=== PATIENT | male | born 1975 | race Caucasian/White ===

== ENCOUNTER 2024-02-04 02:30 | Emergency (ER) | payer BC, OTHER ==
[2024-02-04] MEDS: Ketorolac 15 MG/ML SDV IVPUSH ONE (03:42)
[2024-02-04 04:48] LABS: HEMATOCRIT 41.2 % (42.0-52.0); HEMOGLOBIN 13.4 gm/dl (14.0-18.0); MEAN CORPUSCULAR VOLUME 85.1 fl (83.0-99.0); RED BLOOD CELL COUNT 4.84 M/mm3 (4.52-5.90); WHITE BLOOD CELL COUNT,WBC 9.82 K/mm3 (3.9-11.3)
[2024-02-04 04:49] LABS: BASOPHILS PERCENT AUTO 0.4 % (0.0-1.0); EOSINOPHILS PERCENT AUTO 1.1 % (0.0-6.0); IMMATURE GRAN PERCENT AUTO 0.4 % (0.0-0.4); LYMPHOCYTES PERCENT AUTO 24.2 % (24.0-44.0); MEAN CORPUSCULAR HEMOGLOBIN 27.7 pg (28.0-32.0); MEAN CORPUSCULAR HGB CONC 32.5 g/dl (32.0-36.0); MEAN PLATELET VOLUME 9.7 fl (9.4-12.4); MONOCYTES PERCENT AUTO 9.9 % (0.0-8.0); NEUTROPHILS ABSOLUTE AUTO 6.3 K/mm3 (1.8-7.7); PLATELET COUNT,PLT 299 K/mm3 (150-400)
[2024-02-04 04:50] LABS: EOSINOPHILS ABSOLUTE AUTO 0.1 K/mm3 (0.0-0.4); IMMATURE GRAN ABSOLUTE AUTO 0.04 K/mm3 (0.00-0.05); LYMPHOCYTES ABSOLUTE AUTO 2.4 K/mm3 (1.0-4.8)
[2024-02-04 04:51] LABS: ANION GAP 15.3 (5-15); BUN/CREATININE RATIO 12.2 (14-18); CREATININE 0.9 mg/dL (0.7-1.3); EST CRCL DRUG DOSING (CG) 119.22 mL/min; POTASSIUM,K 3.3 mEq/L (3.5-5.1)
[2024-02-04 04:52] LABS: ALBUMIN 3.4 g/dl (3.4-5.0); BILIRUBIN TOTAL 0.3 mg/dL (0.2-1.0); CALCIUM 8.5 mg/dL (8.5-10.1); PROTEIN TOTAL,TP 6.8 g/dl (6.4-8.2)
[2024-02-04] MEDS: Iopamidol 612 MG/ML 100 ML Bottle IVPUSH ONE (05:04)
[2024-02-04] MEDS: Amoxicillin/Clavulanate K 875-125 MG Tab PO ONE (06:12)
[2024-02-04 06:17] VITALS: BP 139/89; PULSE 52
== END 2024-02-04 06:17 | disposition home or self-care (01) ==
LOC: JD.ED 02:30
DX: K11.20 Sialoadenitis, unspecified (principal); I10 Essential (primary) hypertension; E66.9 Obesity, unspecified; K21.9 Gastro-esophageal reflux disease without esophagitis; Z79.899 Other long term (current) drug therapy; Z68.33 Body mass index [BMI] 33.0-33.9, adult; Z88.8 Allergy status to other drugs, medicaments and biological substances
CPT/HCPCS: 36415; 70487; 80053; 85025; 96374; 99284; A9270; J1885; Q9967

== ENCOUNTER 2024-02-05 00:25 | Emergency (ER) | payer OTHER ==
[2024-02-05 00:35] VITALS: BP 168/77; PULSE 50
[2024-02-05] MEDS: Ketorolac 60 MG/2 ML SDV IM ONE (01:05)
[2024-02-06 12:47] LABS: MUMP ANTIBODY IGG 6.4 AU/mL
[2024-02-07 04:42] LABS: MUMP ANTIBODY IGM 0.16 IV (<=0.79)
== END 2024-02-05 01:23 | disposition home or self-care (01) ==
LOC: JD.ED 00:25
DX: K11.21 Acute sialoadenitis (principal); Z88.8 Allergy status to other drugs, medicaments and biological substances
CPT/HCPCS: 86735; 96372; 99283; J1885; 36415